=== PATIENT | female | born 2000 | race Caucasian/White ===

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

== ENCOUNTER 2021-03-11 05:12 | Emergency (ER) | payer OTHER ==
[~2021-03-11] VITALS: Ht 165.1 cm; Wt 108.9 kg
[~2021-03-11 05:12] MED LIST changes: +OMEPRAZOLE20 MG PO; +PAROXETINE HCL40 MG PO
[2021-03-11] MEDS ORDERED: BUSPIRONE HCL15 MG PO (05:48)
[2021-03-11] MEDS ORDERED: ALPRAZOLAM0.5 MG PO (05:48)
[2021-03-11] MEDS ORDERED: LAMOTRIGINE100 M1 PO (05:49)
[2021-03-11] MEDS ORDERED: DULOXETINE HCL20 MG PO (05:49)
== END 2021-03-11 09:52 | disposition home or self-care (01) ==
LOC: ED 05:12
DX: S51.812A Laceration without foreign body of left forearm, initial encounter (principal); F32.9 Major depressive disorder, single episode, unspecified; X78.8XXA Intentional self-harm by other sharp object, initial encounter; Z79.899 Other long term (current) drug therapy
CPT/HCPCS: 80053; 81001; 84443; 84702; 84703; 85025; 99284; G0480